=== PATIENT | female | born 1945 | race Two or more races ===

== ENCOUNTER 2018-03-25 16:37 | Inpatient (IN) | payer OTHER ==
[~2018-03-25] VITALS: Ht 154.9 cm; Wt 76.2 kg
[2018-03-25] MEDS ORDERED: SODIUM CHLORIDE 0.9% 1000ML BAG (SEPSIS BOLUS) IV ONE (18:00)
[2018-03-25 20:16] LABS: BASOPHILS % 0.6 % (0.0-2.0); EOSINOPHILS % 1.1 % (0.0-5.0); HEMATOCRIT. 44.2 % (36.0-48.0); HEMOGLOBIN. 13.1 g/dL (12.0-16.0); MEAN CORPUSCULAR HEMOGLOBIN 28.2 pg (28.0-32.0); MEAN CORPUSCULAR VOLUME 95.1 fL (81.0-99.0); MEAN PLATELET VOLUME 9.9 fl (7.4-10.4); MONOCYTES % 11.2 % (2.0-8.0); NEUTROPHILS % 66.1 % (40.0-76.0); PLATELET 307 x1000/uL (130-400); RED BLOOD CELL COUNT 4.65 mill/uL (4.2-5.4); RED CELL DISTRIBUTION WIDTH 21.5 % (11.6-14.6)
[2018-03-25 20:27] LABS: INR 1.1
[2018-03-25] MEDS ORDERED: VANCOMYCIN 1 G PREMIX 200 ML IV NR (21:00)
[2018-03-25] MEDS ORDERED: PIPERACILLIN/TAZ 3.375G PREMIX 50 ML IV NR (21:00)
[2018-03-25 21:59] LABS: CHLORIDE 104 mEq/L (98-107)
[2018-03-26] VITALS (9 sets, daily range): BP systolic 91–110; BP diastolic 41–61
[2018-03-26] MEDS ORDERED: DOCUSATE SODIUM 100MG CAPSULE PO PRN (03:15)
[2018-03-26] MEDS ORDERED: MORPHINE SULFATE 4 MG/ML CPJ (NOT FOR IM USE) IV PRN (03:15)
[2018-03-26] MEDS ORDERED: DIPHENHYDRAMINE 50MG/ML VIAL IV PRN (03:15)
[2018-03-26] MEDS ORDERED: HYDROCODONE/ACETAMINOPHEN 5/325MG TABLET PO PRN (03:15)
[2018-03-26] MEDS ORDERED: ONDANSETRON HCL 4MG/2ML VIAL IV PRN (03:15)
[2018-03-26] MEDS ORDERED: DEXTROSE 50% WATER 50ML SYRINGE IV PRN (03:30)
[2018-03-26] MEDS ORDERED: ATOR20TA65 MT (04:33)
[2018-03-26] MEDS ORDERED: HYDR-4001 MT (04:33)
[2018-03-26] MEDS ORDERED: DOCU250C19 MT (04:33)
[2018-03-26] MEDS ORDERED: ACET12.53 PO (04:33)
[2018-03-26] MEDS ORDERED: GABA-529 MT (04:33)
[2018-03-26] MEDS ORDERED: MIDO5TAB MT (04:33)
[2018-03-26] MEDS ORDERED: NORT10CA PO (04:33)
[2018-03-26] MEDS ORDERED: DILT30TA3 MT (04:33)
[2018-03-26] MEDS ORDERED: QUET25TA MT (04:33)
[2018-03-26] MEDS ORDERED: ASPI-1158 MT (04:33)
[2018-03-26] MEDS ORDERED: RANI150T43 MT (04:33)
[2018-03-26] MEDS ORDERED: GLIP10TA10 MT (04:33)
[2018-03-26] MEDS ORDERED: LEVOFLOXACIN 500MG PREMIX 100 ML IV NR (05:00)
[2018-03-26] MEDS: ACETAMINOPHEN 325MG TABLET PO PRN ×2 (05:00→16:06)
[2018-03-26] MEDS: MIDODRINE HCL 5MG TABLET PO SCH ×3 (07:06→18:18)
[2018-03-26] MEDS: BLOOD SUGAR DIAGNOSTIC STRIP TEST SCH ×4 (07:30→21:20)
[2018-03-26] MEDS ORDERED: MIDODRINE HCL 5MG TABLET PO SCH (09:00)
[2018-03-26] MEDS: INSULIN LISPRO 100 UNITS/ML SUBCUT SCH ×3 (10:45→21:24)
[2018-03-26] MEDS ORDERED: VANCOMYCIN 500 MG PREMIX 100 ML IV SCH (11:00)
[2018-03-26 16:22] LABS: T4 FREE 1.07 ng/dL (0.76-1.46)
[2018-03-26 16:29] LABS: CREATINE KINASE MB FRACTION 4.3 ng/mL (0.5-3.6)
[2018-03-26 19:45] LABS: BASOPHILS % 0.4 % (0.0-2.0); HEMATOCRIT. 34.6 % (36.0-48.0); HEMOGLOBIN. 10.5 g/dL (12.0-16.0); LYMPHOCYTES % 11.8 % (20.0-50.0); MEAN CORPUSCULAR HEMOGLOBIN 28.4 pg (28.0-32.0); MEAN CORPUSCULAR VOLUME 93.5 fL (81.0-99.0); MONOCYTES % 11.6 % (2.0-8.0); NEUTROPHILS % 75.2 % (40.0-76.0); RED CELL DISTRIBUTION WIDTH 21.1 % (11.6-14.6)
[2018-03-26] MEDS ORDERED: ALTEPLASE 2MG/VIAL ITC NR (20:00)
[2018-03-26 20:03] LABS: MEAN PLATELET VOLUME 9.2 fl (7.4-10.4); PLATELET 269 x1000/uL (130-400)
[2018-03-26] MEDS ORDERED: ENOXAPARIN 40MG/0.4ML SYR SUBCUT SCH (21:00)
[2018-03-27] VITALS (12 sets, daily range): BP systolic 94–147; BP diastolic 40–72
[2018-03-27 00:12] LABS: CREATINE KINASE MB FRACTION 4.4 ng/mL (0.5-3.6)
[2018-03-27 07:10] LABS: BASOPHILS % 0.4 % (0.0-2.0); EOSINOPHILS % 2.1 % (0.0-5.0); HEMATOCRIT. 36.2 % (36.0-48.0); HEMOGLOBIN. 10.8 g/dL (12.0-16.0); LYMPHOCYTES % 16.3 % (20.0-50.0); MEAN CORPUSCULAR HEMOGLOBIN 27.9 pg (28.0-32.0); MEAN PLATELET VOLUME 9.4 fl (7.4-10.4); MONOCYTES % 12.7 % (2.0-8.0); NEUTROPHILS % 68.5 % (40.0-76.0); PLATELET 298 x1000/uL (130-400); RED BLOOD CELL COUNT 3.85 mill/uL (4.2-5.4); RED CELL DISTRIBUTION WIDTH 21.4 % (11.6-14.6)
[2018-03-27 07:50] LABS: CHLORIDE 102 mEq/L (98-107)
[2018-03-27] MEDS: INSULIN LISPRO 100 UNITS/ML SUBCUT SCH ×4 (08:00→21:30)
[2018-03-27 08:02] LABS: CREATINE KINASE 343 IU/L (26-192)
[2018-03-27 08:05] LABS: CREATINE KINASE MB FRACTION 3.9 ng/mL (0.5-3.6)
[2018-03-27] MEDS: BLOOD SUGAR DIAGNOSTIC STRIP TEST SCH ×4 (08:25→21:30)
[2018-03-27] MEDS: MIDODRINE HCL 5MG TABLET PO SCH ×3 (09:00→17:50)
[2018-03-27] MEDS ORDERED: VANCOMYCIN 500 MG PREMIX 100 ML IV SCH (14:00)
[2018-03-28] VITALS (13 sets, daily range): BP systolic 119–154; BP diastolic 35–63
[2018-03-28] MEDS ORDERED: LEVOFLOXACIN 250MG PREMIX 50 ML IV SCH (06:00)
[2018-03-28] MEDS: BLOOD SUGAR DIAGNOSTIC STRIP TEST SCH ×4 (06:28→21:00)
[2018-03-28 06:41] LABS: BASOPHILS % 0.5 % (0.0-2.0); EOSINOPHILS % 2.1 % (0.0-5.0); HEMATOCRIT. 32.3 % (36.0-48.0); HEMOGLOBIN. 9.6 g/dL (12.0-16.0); MEAN CORPUSCULAR VOLUME 94.2 fL (81.0-99.0); MEAN PLATELET VOLUME 8.7 fl (7.4-10.4); MONOCYTES % 12.5 % (2.0-8.0); NEUTROPHILS % 66.9 % (40.0-76.0); PLATELET 281 x1000/uL (130-400); RED BLOOD CELL COUNT 3.43 mill/uL (4.2-5.4); RED CELL DISTRIBUTION WIDTH 21.5 % (11.6-14.6)
[2018-03-28] MEDS: INSULIN LISPRO 100 UNITS/ML SUBCUT SCH ×4 (08:34→22:11)
[2018-03-28] MEDS: MIDODRINE HCL 5MG TABLET PO SCH ×3 (08:36→17:59)
[2018-03-28] MEDS: ENOXAPARIN 30MG/0.3ML SYR SUBCUT SCH (08:38)
[2018-03-28] MEDS ORDERED: EPOETIN ALFA 10000UNITS/ML VIAL SUBCUT SCH (21:00)
[2018-03-29] VITALS (11 sets, daily range): BP systolic 103–151; BP diastolic 34–84
[2018-03-29] MEDS: BLOOD SUGAR DIAGNOSTIC STRIP TEST SCH ×3 (07:59→18:27)
[2018-03-29] MEDS: ENOXAPARIN 30MG/0.3ML SYR SUBCUT SCH (08:17)
[2018-03-29] MEDS: MIDODRINE HCL 5MG TABLET PO SCH ×3 (08:18→18:26)
[2018-03-29] MEDS: INSULIN LISPRO 100 UNITS/ML SUBCUT SCH ×3 (08:19→18:27)
[2018-03-29 09:10] LABS: BASOPHILS % 0.5 % (0.0-2.0); EOSINOPHILS % 2.3 % (0.0-5.0); HEMATOCRIT. 31.9 % (36.0-48.0); HEMOGLOBIN. 9.5 g/dL (12.0-16.0); LYMPHOCYTES % 21.9 % (20.0-50.0); MEAN CORPUSCULAR HEMOGLOBIN 27.6 pg (28.0-32.0); MEAN CORPUSCULAR VOLUME 92.9 fL (81.0-99.0); MEAN PLATELET VOLUME 8.6 fl (7.4-10.4); MONOCYTES % 10.5 % (2.0-8.0); NEUTROPHILS % 64.8 % (40.0-76.0); PLATELET 281 x1000/uL (130-400); RED BLOOD CELL COUNT 3.44 mill/uL (4.2-5.4); RED CELL DISTRIBUTION WIDTH 21.5 % (11.6-14.6)
[2018-03-29] MEDS ORDERED: POTASSIUM CHLORIDE 20MEQ TABLET SR PO NR (12:00)
== END 2018-03-29 19:35 | disposition short-term general hospital (02) | DRG 314 ==
LOC: ER 16:37 → 5EST 21:17 → EDBD 21:17 → EDBEDREQTM 21:19 → EDBEDREQ 21:19 → ENRESERV 21:42
PROVIDERS: ADMIT Hospitalist; ATTEND Hospitalist
PROC: 3E03317 Introduction of Other Thrombolytic into Peripheral Vein, Percutaneous Approach (ICD-10-PCS; 2018-03-26)
PROC: 5A1D70Z Performance of Urinary Filtration, Intermittent, Less than 6 Hours Per Day (ICD-10-PCS; principal; 2018-03-27)
PROC: 5A1D70Z Performance of Urinary Filtration, Intermittent, Less than 6 Hours Per Day (ICD-10-PCS; 2018-03-29)
DX: T82.898A Other specified complication of vascular prosthetic devices, implants and grafts, initial encounter (principal); A41.9 Sepsis, unspecified organism; N18.6 End stage renal disease; J96.20 Acute and chronic respiratory failure, unspecified whether with hypoxia or hypercapnia; R65.20 Severe sepsis without septic shock; C79.31 Secondary malignant neoplasm of brain; I13.2 Hypertensive heart and chronic kidney disease with heart failure and with stage 5 chronic kidney disease, or end stage renal disease; D68.9 Coagulation defect, unspecified; E46 Unspecified protein-calorie malnutrition; I48.92 Unspecified atrial flutter; D64.9 Anemia, unspecified; R55 Syncope and collapse; L89.320 Pressure ulcer of left buttock, unstageable; L89.310 Pressure ulcer of right buttock, unstageable; L89.150 Pressure ulcer of sacral region, unstageable; R91.8 Other nonspecific abnormal finding of lung field; G90.8 Other disorders of autonomic nervous system; R62.7 Adult failure to thrive; I49.5 Sick sinus syndrome; I50.9 Heart failure, unspecified; E11.22 Type 2 diabetes mellitus with diabetic chronic kidney disease; E11.51 Type 2 diabetes mellitus with diabetic peripheral angiopathy without gangrene; Z68.31 Body mass index [BMI] 31.0-31.9, adult; G40.909 Epilepsy, unspecified, not intractable, without status epilepticus; Y83.8 Other surgical procedures as the cause of abnormal reaction of the patient, or of later complication, without mention of misadventure at the time of the procedure; E87.6 Hypokalemia; Z89.512 Acquired absence of left leg below knee; Z89.511 Acquired absence of right leg below knee; Y92.89 Other specified places as the place of occurrence of the external cause; Z99.2 Dependence on renal dialysis; I25.2 Old myocardial infarction; Z85.3 Personal history of malignant neoplasm of breast; Z88.2 Allergy status to sulfonamides; Z88.8 Allergy status to other drugs, medicaments and biological substances; Z91.048 Other nonmedicinal substance allergy status; Z79.82 Long term (current) use of aspirin; Z79.899 Other long term (current) drug therapy
CPT/HCPCS: 36415; 71045; 78580; 80048; 80053; 80061; 80202; 82550; 82553; 82962; 83036; 83605; 83880; 84134; 84439; 84443; 84484; 85025; 85379; 85610; 87040; 93005; 93306; 96365; 96366; 96368; 99291; A6261; J0885; J1650; J1815; J1956; J2270; J2543; J2997; J3370; J7030; J7050